=== PATIENT | female | born 2000 | race Two or more races ===

== ENCOUNTER 2024-10-09 23:25 | Emergency (ER) | payer OTHER ==
[~2024-10-09] VITALS: Ht 170.2 cm; Wt 54.4 kg
[2024-10-09] MEDS ORDERED: MONTELUKAST SODI4 M1 (23:51)
[2024-10-10] MEDS ORDERED: CEFTRIAXONE SODIUM 1,000 MG VIAL IM STA (00:24)
[2024-10-10] MEDS ORDERED: METHYLPREDNISOLONE SOD SUCC 125 MG VIAL IM STA (00:24)
[2024-10-10] MEDS ORDERED: ORASEP SPRAY30 ML MM (00:38)
[2024-10-10] MEDS ORDERED: CEPHALEXIN500 MG PO (00:38)
== END 2024-10-10 00:57 ==
LOC: ER 23:27
DX: J02.9 Acute pharyngitis, unspecified (principal)